=== PATIENT | female | born 1960 | race Caucasian/White ===

== ENCOUNTER 2017-09-22 18:38 | Emergency (ER) | payer OTHER ==
[2017-09-22 18:42] VITALS: BP 143/81; PULSE 71; RESP 16; TEMP 98.1; O2SAT 97
--- NOTE | 2017-09-22 19:09 | EDPHY ---
H & P Time Seen by Provider: 09/22/17 18:50 HPI/ROS: CHIEF COMPLAINT: Right facial swelling post mechanical fall HISTORY OF PRESENT ILLNESS: 57-year-old female generally healthy no anticoagulant use states yesterday when she was running on a trail she slipped and fell impacting her right periorbital region. She was seen at urgent care where she had wound care performed, was told that she developed periorbital swelling to go to the ER. Today she notes that when she woke up she had periorbital swelling therefore comes to the ER. She denies: Headache, nausea, vomiting, visual disturbance, diplopia, abnormal gaze, rhinorrhea, otorrhea, midline C-spine pain, peripheral paresthesia, weakness, numbness. PRIMARY CARE PROVIDER: REVIEW OF SYSTEMS: A ten point review of systems was performed and is negative with the exception of the items mentioned in the HPI PAST MEDICAL/SURGICAL HISTORY: no anticoagulant use, no relevant medical/ surgical history SOCIAL HISTORY: denies alcohol use at time of incident PHYSICAL EXAM 1) GENERAL: Well-developed, well-nourished, alert and oriented. Appears to be in no acute distress. Answering questions appropriately. GCS 15 2) HEAD: Normocephalic, atraumatic 3) HEENT: Pupils equal, round, reactive to light bilaterally. Steri-Strips in place right eyebrow, right infraorbital abrasion noted. There is noted periorbital edema with mild the ecchymotic discoloration. Extraocular movements are intact do not elicit abnormal gaze with diplopia. There is no proptosis. No crepitus. Funduscopic examination is grossly unremarkable with no hyphema noted. Negative Horners. Nasopharynx, oropharynx, clear. No deformity or angulation of nose. No septal hematoma. No rhinorrhea. No oral trauma. Ears bilaterally with normal tympanic membranes. No hemotympanum. No fluid or blood in the external auditory canal. No raccoon eyes. No Donnelly sign. Teeth are normally aligned with no gross malocclusion, TMJ bilaterally nontender, facial bones nontender including the zygomatic arch, maxilla mandible. 4) NECK: No cervical collar is on. Posterior cervical spine is nontender, no stepoff, no effusion. Full range of motion which does not elicit any midline cervical spine pain, no posterior midline tenderness, no step-off. Smoking Status: Never smoked Constitutional: Initial Vital Signs Temperature (C) 36.7 C 09/22/17 18:39 Heart Rate 71 09/22/17 18:39 Respiratory Rate 16 09/22/17 18:39 Blood Pressure 143/81 H 09/22/17 18:39 O2 Sat (%) 97 09/22/17 18:39 O2 Delivery Mode Room Air Allergies/Adverse Reactions: No Known Allergies Allergy (Unverified 09/22/17 18:42) Home Medications: Medication Instructions Recorded NK [No Known Home Meds] 09/22/17 MDM/Departure - [facility] ED Course/Re-evaluation: This patient appears well. Patient's incident occurred over 24 hr ago she is currently answering questions appropriately, no anticoagulant use, no headache, no nausea no vomiting. I think that intracranial hemorrhage, skull fracture less than likely. I do not think that imaging of the brain currently indicated. Regarding her facial injury, I informed that I expect soft tissue swelling to occur after the incident. I think that periorbital fracture with entrapment less than likely. She has no hyphema, no abnormal gaze. At this time I do not think that imaging of the the periorbital bones currently indicated. She has been informed that fracture is not fully ruled out however I do not think that the benefits outweigh the risks. I have recommended continued cold packs, sleeping with head of bed slightly elevated and follow up with ENT, given this follow-up information. She feels comfortable being discharged. All questions and concerns addressed by myself. Care of patient under supervision of secondary supervising physician Dr Winn . - Depart Disposition: Home, Routine, Self-Care Clinical Impression: Facial injury Qualifiers: Encounter type: initial encounter Qualified Code(s): S09.93XA - Unspecified injury of face, initial encounter Condition: Good Instructions: Facial Laceration (ED) Referrals: Lourdes Aggarwal MD [Primary Care Provider] - 2-3 days, call for appt. Rafiq Arciniega MD [Medical Doctor] - As per Instructions
== END 2017-09-22 19:22 | disposition home or self-care (01) ==
DX: S09.93XA Unspecified injury of face, initial encounter (principal); W01.198A Fall on same level from slipping, tripping and stumbling with subsequent striking against other object, initial encounter; Y93.02 Activity, running

== ENCOUNTER → 2018-08-01 | Outpatient (CLI) | payer OTHER | LOC: FIMAGING 13:21 | PROVIDERS: ATTEND Family Medicine | DX: Z12.31 Encounter for screening mammogram for malignant neoplasm of breast (principal) ==